=== PATIENT | female | born 1970 | race Caucasian/White ===

== ENCOUNTER 2018-11-06 18:02 | Emergency (ER) | payer OTHER, SELFPAY ==
[2018-11-06 18:06] VITALS: BP 121/69; PULSE 68; RESP 16; TEMP 36.7; O2SAT 98
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
== END 2018-11-06 21:35 | disposition home or self-care (01) ==
PROVIDERS: Emergency Provider Emergency Medicine
DX: S62.356A Nondisplaced fracture of shaft of fifth metacarpal bone, right hand, initial encounter for closed fracture (principal); S62.354A Nondisplaced fracture of shaft of fourth metacarpal bone, right hand, initial encounter for closed fracture; S50.11XA Contusion of right forearm, initial encounter; V43.52XA Car driver injured in collision with other type car in traffic accident, initial encounter
CPT/HCPCS: 26600; 99283; 73090; 73130; 99282; L3650